=== PATIENT | female | born 1970 | race Caucasian/White ===

== ENCOUNTER 2020-01-19 07:48 | Outpatient (CLI) | payer BC, SELFPAY ==
--- NOTE | 2020-01-19 08:30 | XRR_ITS ---
PROCEDURE INFORMATION: Exam: XR Abdomen, 1 View Exam date and time: 01/19/2020 8:11 AM Age: 49 years old Clinical indication: Condition or disease; Kidney or ureter condition; Calculus (stone) in kidney; Prior surgery; Surgery date: 6+ months; Surgery type: Appendectomy TECHNIQUE: Imaging protocol: XR of the abdomen. Views: Frontal supine view of the abdomen. 1 View. COMPARISON: CR XR KUB [id number] 11/04/2018 8:49 AM FINDINGS: Gastrointestinal tract: bowel gas pattern is nonspecific. Air filled large bowel including distal rectal gas. Scattered loops of air filled small bowel none of which are dilated. Large amount of stool throughout the large bowel. Organs: No calcifications are seen overlying the renal outlines or the expected course of the right or left ureters. No suspicious calcifications within the pelvis. Bones/joints: No acute osseous abnormality. Soft tissues: psoas margins are well-defined. properitoneal flank stripes are normal. XR/XR KUB [id number] IMPRESSION: 1. Bowel gas pattern is nonspecific. Air filled large bowel including distal rectal gas. Scattered loops of air filled small bowel none of which are dilated. 2. Large amount of stool throughout the large bowel.
== END 2020-01-19 07:49 | disposition home or self-care (01) ==
PROVIDERS: Family Provider Family Medicine; PCP Family Medicine; Visit Provider Urology
DX: N20.0 Calculus of kidney (principal)
CPT/HCPCS: 74018; 81001

== ENCOUNTER → 2021-08-10 12:45 | Outpatient (BNVA) | payer OTHER, SELFPAY | PROVIDERS: Family Provider Family Medicine; PCP Family Medicine; Visit Provider Emergency Medicine | DX: Z20.822 Contact with and (suspected) exposure to COVID-19 (principal) | CPT/HCPCS: 87635 ==